=== PATIENT | male | born 1945 | race Caucasian/White ===

== ENCOUNTER 2018-03-19 17:48 | Emergency (ER) | payer OTHER ==
[~2018-03-19] VITALS: Ht 177.8 cm; Wt 98.9 kg
[2018-03-19] MEDS ORDERED: ZOLOFT50 MG PO (18:26)
[2018-03-19] MEDS ORDERED: PROSCAR 5MG TABL5 M1 PO (18:26)
[2018-03-19] MEDS ORDERED: ATENOLOL 100MG100 MG PO (18:26)
[2018-03-19] MEDS ORDERED: VITAMIN B-12500 MCG PO (18:27)
[2018-03-19] MEDS ORDERED: FOLGARD TABLET1 EAC1 PO (18:27)
[2018-03-19] MEDS ORDERED: ALLERGY PILL (18:27)
[2018-03-19] MEDS ORDERED: WATER PILL (18:28)
[2018-03-19 19:28] LABS: ABSOLUTE BASOPHILS 0.1 thou/uL (0.0-0.2); ABSOLUTE EOSINOPHILS 0.4 thou/uL (0.0-0.7); ABSOLUTE LYMPHOCYTES 2.5 thou/uL (0.8-5.3); ABSOLUTE MONOCYTES 0.9 thou/uL (0.0-1.2); ABSOLUTE NEUTROPHILS 5.4 thou/uL (1.6-8.1); EOSINOPHILS 3.8 %; HEMATOCRIT 45.3 % (42.0-52.0); HEMOGLOBIN 15.2 gm/dL (14.0-18.0); LYMPHOCYTES 26.9 %; MCH 30.3 pg (26.0-34.0); MCHC 33.5 g/dL (28.0-37.0); MCV 90.4 fL (80.0-100.0); MONOCYTES 9.8 %; MPV 8.8 fl. (7.2-11.1); NUCLEATED RBCS 0 /100WBC; PLATELET COUNT* 212 thou/uL (150-400); POLYS 58.5 %; RBC 5.01 mil/uL (4.50-6.00); RDW-CV 14.5 % (10.5-14.5); WBC 9.2 thou/uL (4.0-11.0)
[2018-03-19 19:33] LABS: ANION GAP 8 mmol/L (7-16); BUN 15 mg/dL (7-18); CALCIUM 9.1 mg/dL (8.5-10.1); CHLORIDE 104 mmol/L (98-107); CO2 28 mmol/L (21-32); GLUCOSE 110 mg/dL (70-99); POTASSIUM 3.5 mmol/L (3.5-5.1); SODIUM 140 mmol/L (136-145)
[2018-03-19 19:43] LABS: ALBUMIN 3.7 g/dL (3.4-5.0); ALKALINE PHOSPHATASE 110 U/L (46-116); SGOT 30 U/L (15-37); SGPT 36 U/L (30-65); TOTAL BILIRUBIN 0.3 mg/dL (<0.1-1.0); TOTAL PROTEIN 7.3 g/dL (6.4-8.2); TROPONIN-I LEVEL <0.06 ng/mL (<0.06)
[2018-03-19 19:56] LABS: URINE BILIRUBIN NEGATIVE (Negative); URINE BLOOD NEGATIVE (Negative); URINE CLARITY CLEAR; URINE COLOR YELLOW; URINE GLUCOSE-RANDOM NEGATIVE (Negative); URINE KETONES NEGATIVE (Negative); URINE LEUKOCYTES NEGATIVE (Negative); URINE NITRITE NEGATIVE (Negative); URINE PROTEIN NEGATIVE (Negative); URINE SPECIFIC GRAVITY >= 1.030 (1.005-1.030); URINE UROBILINOGEN 0.2 E.U./dl (0.2-1.0)
[2018-03-19] MEDS ORDERED: NORVASC5 M1 PO (21:39)
[2018-03-19 22:14] VITALS: BP 177/89
--- NOTE | 2018-03-20 11:21 | EKG ---
[place] [address] ELECTROCARDIOGRAM REPORT Name: LU CORONADO [facility] [id number] Admission: 03/19/18 Attend Phys: Discharge: 03/19/18 Date of : 47 Report #: [id number] THIS REPORT FOR: //name// [facility] ED Test Date: 2018-03-19 Test Time: 19:50:59 Pat Name: LU IVONNE Department: Room: Gender: M News Producer: ALFREDO : 1945 Requested By: Colleen Azevedo Order Number: [id number] MD: Zeyad Ambrose Measurements Intervals [place] Rate: 53 P: 16 VA: 136 QRS: -39 QRSD: 107 T: 71 QT: 511 QTc: 480 Interpretive Statements Sinus bradycardia nonspecific st changes Abnormal R-wave progression, late transition consider Inferior infarct, old Baseline wander in lead(s) V5 No previous ECG available for comparison Electronically Signed On 03-20-2018 11:21:42 CDT by Zeyad Ambrose [email or web address] <ELECTRONICALLY SIGNED> By: Zeyad Ambrose MD, [facility] 03/20/18 1121 1950 1950 Zeyad Ambrose MD, [facility] /EPI
== END 2018-03-19 22:15 | disposition home or self-care (01) ==
LOC: M.ERS 17:48
PROVIDERS: Nurse Practitioner Family
DX: I10 Essential (primary) hypertension (principal); Z88.8 Allergy status to other drugs, medicaments and biological substances